=== PATIENT | female | born 1995 | race Caucasian/White ===

== ENCOUNTER → 2017-11-24 09:46 | Outpatient (CLI) | payer OTHER, SELFPAY ==
--- NOTE | 2017-11-24 09:55 | RAD_ITS ---
STUDY: X-RAY - RIGHT HAND, ATTENTION 5th FINGER REASON FOR EXAM: Female, 22 years old. Pain and swelling redness TECHNIQUE: view(s) of the finger were obtained. COMPARISON: None. FINDINGS: Normal metacarpal head. Normal metacarpophalangeal joint. Normal proximal phalanx. Normal middle phalanx. Normal distal phalanx. Normal proximal interphalangeal joint. Normal distal interphalangeal joint. The nail appears to be lifted from the soft tissue. RAD/Finger(s) Min 2 Views IMPRESSION: Nail bed injury. No visualized fracture or bony erosion. Electronically Signed: Yoon Hein MD at 19:33 EDT Tel , Service support ,
== END ==
PROVIDERS: Family Provider Family Medicine; PCP Family Medicine; Visit Provider Family Medicine
DX: L08.9 Local infection of the skin and subcutaneous tissue, unspecified (principal); S69.91XA Unspecified injury of right wrist, hand and finger(s), initial encounter; X58.XXXA Exposure to other specified factors, initial encounter
CPT/HCPCS: 73140; 87070; 87205

== ENCOUNTER → 2018-05-03 17:00 | Outpatient (CLI) | payer OTHER, SELFPAY ==
[2018-05-03 18:14] LABS: LDH 167 U/L (84-246)
[2018-05-05 09:28] LABS: AFP, Tumor Marker 1.9 ng/mL (0.0-8.3); Cancer Antigen 125 10.1 U/mL (0.0-38.1)
== END ==
PROVIDERS: Family Provider Family Medicine; PCP Family Medicine; Referring Provider Obstetrics & Gynecology Gynecology; Visit Provider Obstetrics & Gynecology Gynecology
DX: D39.12 Neoplasm of uncertain behavior of left ovary (principal)
CPT/HCPCS: 36415; 82105; 83615; 86304

== ENCOUNTER 2018-05-04 11:40 | Day surgery (SDC) | payer OTHER, SELFPAY ==
[2018-05-04] VITALS (7 sets, daily range): BP systolic 119–135; BP diastolic 65–86; PULSE 69–86; RESP 14–16; TEMP 36.4–37.1; O2SAT 96–100; BMI 33.0
[2018-05-04 12:08] LABS: Hematocrit 42.8 % (37-47); Mean Corp Hgb Conc 32.7 g/gl (32-36); Mean Corpuscular Volume 88.6 fL (81-99); Mean Platelet Vol. 11.1 fl (6.2-12.0); Platelet Count 246 K/mm3 (150-450); RBC Distribution Width CV 12.4 % (11.6-14.6); RBC Distribution Width SD 39.8 fl (35.1-43.9); Red Blood Count 4.83 M/mm3 (4.2-5.4); White Blood Count 5.2 K/mm3 (4.4-11.0)
[2018-05-04 12:08] LABS: Internal QC Validated? YES +Cl - CLEAR BKGD; Pregnancy, Urine Negative Negative
[2018-05-04 12:09] LABS: Scan Indicated on CBC? Y/N NO
[2018-05-04 12:36] LABS: Anion Gap 6 (5-15); BUN 8 mg/dL (7-18); BUN/Creat Ratio 9.7 RATIO (10-20); Calcium,Total 8.9 mg/dL (8.5-10.1); Chloride 106 mmol/L (98-107); Creatinine, Serum 0.82 mg/dL (0.55-1.02); EST Glomerular Filtration Rate 92 mL/min (>60); Est Glom Filt Rate - Afr Amer 111 mL/min (>60); Estimated Creatinine Clearance 96.83 ml/min; Glucose 98 mg/dL (74-106); Potassium 3.9 mmol/L (3.5-5.1); Sodium Level 137 mmol/L (136-145)
--- NOTE | 2018-05-04 13:30 | CYST_PTH ---
PATIENT: LEO LAMB [place] [facility] [place][id number] AGE/SX: ROOM: RE05/04/[address]: Dr. Ashley Vasquez MD : 1995 BED: DIS: 05/04/2018 SPEC #: [id number] RECD: 05/04/18 16:12 STATUS: EMILY EZIO #: [id number] ALICE: 05/04/18 13:[address]: Ashley Vasquez DEPT: SURGICAL PATHOLOGY RECD BY: Don Gongora ENTERED: 05/07/18 14:48 SP TYPE: Cyst OTHR DR: Dr. Carlito Martinez MD Tissues: Left ovary Procedures: Surgery Specimen Level III HEADER OPERATION: Laparoscopic ovarian cystectomy PRE-OP DIAGNOSIS: Persistent left ovarian cyst TISSUE SUBMITTED: Left ovarian cyst wall MICROSCOPIC DIAGNOSIS Ovarian cyst wall, cystectomy: Consistent with benign cyst. Negative for malignancy. See comment. ANNIKA:vinicio 05/08/18 COMMENT The specimen predominantly consists of ovarian tissue and fibrous tissue. No obvious cyst lining epithelium is noted. Please also correlate with corresponding cytology, [id number], peritoneal washings. This case is discussed with Dr. Vasquez on 05/09/18. MICROSCOPIC DESCRIPTION Slides are reviewed. GROSS DESCRIPTION Received in fixative is one container labeled with the patient's name and designated left ovarian cyst wall. The specimen consists of an irregular piece of sherwood soft tissue consistent with portion of cyst wall measuring 6 x 1.5 x 0.5 cm. No papillations are identified. The entire specimen is submitted in three cassettes. / SJ:vinicio 05/07/18 TC:5 CPT: 31050
--- NOTE | 2018-05-04 14:21 | FLU_PTH ---
PATIENT: LEO LAMB LOC: [facility] [place] U#:[id number] AGE/SX: ROOM: RE05/04/[address]: Dr. Ashley Vasquez MD : 1995 BED: DIS: 05/04/2018 SPEC #: [id number] RECD: 05/04/18 14:37 STATUS: EMILY EZIO #: [id number] ALICE: 05/04/18 14:[address]: Ashley Vasquez DEPT: CYTOLOGY RECD BY: Don Gongora ENTERED: 05/07/18 14:38 SP TYPE: Fluid OTHR DR: Dr. Carlito Martinez MD Tissues: Peritoneal fluid Procedures: Special Stain Group II Surgery Specimen Level IV Cytospin Fluid HEADER OPERATION: Laparoscopic left ovarian cystectomy and peritoneal washings PRE-OP DIAGNOSIS: Persistent left ovarian cyst TISSUE SUBMITTED: Peritoneal washings DIAGNOSIS CYTOLOGY Peritoneal washings (cytospin and cell block): Negative for malignant cells. SJ:rg 05/08/18 COMMENT Please also refer to corresponding surgical specimen [id number]. CYTOLOGY STUDY Slides are reviewed. CYTOLOGY GROSS Received is 37 ml of clear sherwood fluid labeled with the patient's name and and designated per the requisition as peritoneal washings. Submitted for cytology preparation including cell block. / 05/07/18 TC:4 CPT: 26424, 15535
[2018-05-04] MEDS: Bupivacaine 0.25% 30 ML Vial (15:28)
--- NOTE | 2018-05-04 15:41 | OP.PCM_ITS ---
Problem List (1) Ovarian cyst Status: Acute Report of Operation Date of Procedure: 05/04/18 Pre-Operative Diagnosis: Persistent left ovarian cyst Post-Operative Diagnosis: Persistent left ovarian cyst Surgery/Procedure Performed:: Laparoscopic left ovarian cystectomy and peritoneal washings Description of Surgical Findings:: Large left ovarian cyst without any evidence of torsion it was smooth-walled the peritoneal surfaces were all smooth walled the right ovary was mildly cystic but normal looking ovary and tubes were normal looking box toe flanger stitchdowns: None - Desirae Type of Anesthesia:: General Anesthesiologist: Will Chen Special Medications: 10 mill of quarter percent plain bupivacaine injected between the 3 incisions Specimen's removed: Left ovarian cyst wall and part of the ovarian surface. Estimated Blood Loss (mL): 10 mL Fluids Replaced: 1900 mL Description of Procedure: Under general anesthesia the patient was prepped and draped in the usual sterile fashion in the dorsal extended ski position and a Zhou catheter was placed to continuous drainage and Hulka tenaculum for uterine manipulation. After glove change attention was turned to the abdomen where a subumbilical skin incision was made and the Veress needle inserted placement was confirmed with a hanging drop method and a pneumoperitoneum was created. A trocar and cannula were inserted and the camera placed confirming intraperitoneal placement without obvious underlying bowel damage the patient was then placed in Trendelenburg position and 2 more ports were placed 10 mm on the left and 5 mm on the right under direct visualization. The pelvis was irrigated with 20 cc of saline which was then aspirated out and sent separately for pathology. The right adnexa was inspected with findings as above and the uterus was noted to be normal on the left side the ovary was enlarged with a cystic structure and using the scissors with cautery the equator of the cyst was cauterized and then cut and traction placed on the ovarian cyst to try to extract it from the ovary. At 2 points the cyst was entered and clear fluid egressed which was irrigated out. Of note was that this was clear osvaldo fluid. This worked well for most of the cyst however in other places especially near the ovarian hilum it was very densely adherent and after most of the cyst had been extracted the cyst wall was cut leaving some of the densely adherent cyst wall in place. The left ovary was left as a flattened structure which was rather large and folded up because of the size of the cyst approximately 8 cm the intra-abdominal pressure was reduced to 8 mmHg and inspection of the cut & raw surfaces was carried out for several minutes without any active bleeding noted .At this point the 10 mm incision was repaired paying attention to the underlying structures. After the fascia of the 10 mm incision was closed the pneumoperitoneum was reduced, and the skin on all 3 incisions was closed with a subcuticular layer of #3-0 Monocryl sponge and instrument counts were correct x2 - Complications None noted None - Admit VTE Documentation VTE Present on Admission: No
--- NOTE | 2018-05-04 16:03 | PCM.DC.TUB ---
Discharge Diet: No Restrictions, Light diet - advance as tolerated Discharge Activity: May Shower Return to work on:: 05/11/18 May shower in (days): 1 May resume sexual activity in: 4-6 weeks Call your doctor if your incision/area has: Sudden Increased Bleeding, Increased Pain/ Swelling, Swelling at the incision site Call your doctor if you observe: Fever of 101 or Higher, Inability to urinate, Uncontrolled pain Change Dressing in (Days):: 3 - unless wet Remove Dressing in (days):: 3 Additional Dressing/Incision Instructions:: Leave steri strips in place Allergies/Adverse Reactions: Allergies amoxicillin [From Augmentin] Allergy (Verified 05/03/18 16:38) Hives clavulanic acid [From Augmentin] Allergy (Verified 05/03/18 16:38) Hives Medications to take at Discharge Multivit-Min/Iron/Folic Acid/K [Multi-Day Plus Minerals Tablet] 1 each PO DAILY 05/03/18 Norethindrone-E.estradiol-Iron [Lo Loestrin Fe 1-10 Tablet] 1 each PO DAILY 05/03/18 Primary Care Physician: Carlito Martinez MD [Primary Care Provider] - Test Results: Test results from this visit will be discussed in further detail at your follow-up appointment, if applicable. Please Follow Up With: Ashley Vasquez MD When: 5 days
--- NOTE | 2018-05-04 16:06 | DCINST_ITS ---
Discharge Diet: No Restrictions, Light diet - advance as tolerated Discharge Activity: May Shower Return to work on:: 05/11/18 May shower in (days): 1 May resume sexual activity in: 4-6 weeks Call your doctor if your incision/area has: Sudden Increased Bleeding, Increased Pain/ Swelling, Swelling at the incision site Call your doctor if you observe: Fever of 101 or Higher, Inability to urinate, Uncontrolled pain Change Dressing in (Days):: 3 - unless wet Remove Dressing in (days):: 3 Additional Dressing/Incision Instructions:: Leave steri strips in place Allergies/Adverse Reactions: Allergies amoxicillin [From Augmentin] Allergy (Verified 05/03/18 16:38) Hives clavulanic acid [From Augmentin] Allergy (Verified 05/03/18 16:38) Hives Medications to take at Discharge Multivit-Min/Iron/Folic Acid/K [Multi-Day Plus Minerals Tablet] 1 each PO DAILY 05/03/18 Norethindrone-E.estradiol-Iron [Lo Loestrin Fe 1-10 Tablet] 1 each PO DAILY 05/03/18 Primary Care Physician: Carlito Martinez MD [Primary Care Provider] - Test Results: Test results from this visit will be discussed in further detail at your follow- up appointment, if applicable. Please Follow Up With: Ashley Vasquez MD When: 5 days
[2018-05-04] MEDS: oxyCODONE 5 MG Tablet PO (17:33)
[2018-05-08 15:43] LABS: Cytology, Body Fluid / CSF SEE PATHOLOGY REPORT
== END 2018-05-04 18:00 | disposition home or self-care (01) ==
LOC: SDC 11:41 → AC 11:42
PROVIDERS: Family Provider Family Medicine; PCP Family Medicine; Referring Provider Obstetrics & Gynecology Gynecology; Visit Provider Obstetrics & Gynecology Gynecology
PROC: (CPT 58720; principal; 2018-05-04 13:15)
DX: N83.292 Other ovarian cyst, left side (principal)
CPT/HCPCS: 49084; 58662; 36415; 80048; 81025; 85027; 86850; 86900; 88108; 88304; 88305; 88313; J7120; J2405

== ENCOUNTER → 2019-03-22 16:40 | Outpatient (CLI) | payer OTHER, SELFPAY ==
[2019-03-22 16:38] VITALS: BMI 33.0
== END ==
PROVIDERS: Family Provider Family Medicine; PCP Family Medicine; Referring Provider Physician Assistant Surgical; Visit Provider Physician Assistant Surgical
DX: J02.9 Acute pharyngitis, unspecified (principal)
CPT/HCPCS: 87070

== ENCOUNTER → 2019-04-16 09:19 | Outpatient (CLI) | payer OTHER, SELFPAY ==
[2019-03-22 16:38] VITALS: BMI 33.0
--- NOTE | 2019-04-16 09:26 | US_ITS ---
STUDY: ULTRASOUND TRANSVAGINAL CLINICAL: Female, 23 years old. AUB DURING A 10 DAY HCG DIET -- LT PELVIC PAIN -- LT O CYST REMOVED 1 YEAR AGO TECHNIQUE: Transvaginal COMPARISON: None. FINDINGS: Normal uterine size measuring 7.5 x 5.6 x 3.2 cm in maximal craniocaudal dimension. There are no myometrial masses. Normal endometrial thickness measuring 8 mm. There are no endometrial masses, and there is no fluid in the endometrial cavity. Normal uterine cervix. Normal right ovary, measuring 3.0 x 3.1 x 2.7 cm. There are multiple follicles without a dominant cyst. Normal left ovary, measuring 4.6 x 3.9 x 3.2 cm. 3.2 cm corpus luteum cyst of the left ovary.. There is no free fluid in the pelvis. Polycystic ovary disease: No. US/Transvaginal Non- IMPRESSION: 3.2 cm corpus luteum cyst of the left ovary. Electronically Signed: Rishabh Vergara MD at 11:24 EST Tel , Service support ,
== END ==
PROVIDERS: PCP Family Medicine; Referring Provider Obstetrics & Gynecology; Visit Provider Obstetrics & Gynecology
DX: R10.2 Pelvic and perineal pain (principal); N93.9 Abnormal uterine and vaginal bleeding, unspecified
CPT/HCPCS: 76830; 93976

== ENCOUNTER → 2019-09-25 18:04 | Outpatient (CLI) | payer OTHER, SELFPAY ==
[2019-09-25 11:32] VITALS: BMI 33.0
== END ==
PROVIDERS: PCP Family Medicine; Referring Provider Physician Assistant; Visit Provider Physician Assistant
DX: Z20.828 Contact with and (suspected) exposure to other viral communicable diseases (principal)
CPT/HCPCS: 87635; G2023; U0003